=== PATIENT | female | born 1970 | race Caucasian/White ===

== ENCOUNTER 2022-08-29 14:08 | Outpatient (CLI) | payer BC | END 2022-08-29 14:09 | disposition short-term general hospital (02) | LOC: EMS 14:08 | DX: S61.512A Laceration without foreign body of left wrist, initial encounter (principal); S61.511A Laceration without foreign body of right wrist, initial encounter; S51.012A Laceration without foreign body of left elbow, initial encounter; S51.011A Laceration without foreign body of right elbow, initial encounter; X78.9XXA Intentional self-harm by unspecified sharp object, initial encounter; Y92.59 Other trade areas as the place of occurrence of the external cause | CPT/HCPCS: A0425; A0429 ==

== ENCOUNTER 2022-09-04 15:09 | Emergency (ER) | payer BC ==
[2022-09-04] MEDS ORDERED: LACTULOSE 10 GM /15 ML UDC PO STA (15:22)
[2022-09-04] MEDS ORDERED: PEG 3350/NA SULF,BICARB,CL/KCL 4,000 ML BOTTLE PO ONE (15:22)
[2022-09-04 15:58] LABS: BASOPHILS % (AUTO) 0.3 %; EOSINOPHILS # (AUTO) 0.2 10^3/uL (0.0-0.7); EOSINOPHILS % (AUTO) 3.2 %; HCT - HEMATOCRIT 37.8 % (37.0-47.0); HGB - HEMOGLOBIN 12.1 g/dL (12.0-16.0); LYMPHOCYTES # (AUTO) 1.2 10^3/uL (1.5-3.5); LYMPHOCYTES % (AUTO) 19.3 %; MEAN CORPUSCULAR VOLUME 93.8 fL (81.0-99.0); MEAN PLATELET VOLUME 9.1 fL (7.9-10.8); MONOCYTES # (AUTO) 0.5 10^3/uL (0.0-1.0); MONOCYTES % (AUTO) 8.1 %; NEUTROPHILS # (AUTO) 4.3 10^3/uL (1.5-6.6); NEUTROPHILS % (AUTO) 68.6 %; PLT - PLATELET COUNT 285 10^3/uL (130-450); RED BLOOD COUNT 4.03 10^6/uL (4.20-5.40); RED CELL DISTRIBUTION WIDTH 13.9 % (12.0-15.0); WHITE BLOOD COUNT 6.3 x10^3/uL (4.8-10.8)
[2022-09-04] MEDS ORDERED: iohexoL-300 100 ML VIAL ONE (16:21)
[2022-09-04 16:48] LABS: ALBUMIN 4.7 g/dL (3.2-5.5); ALBUMIN/GLOBULIN RATIO 1.6 (1.0-2.2); BILIRUBIN,TOTAL 0.4 mg/dL (0.2-1.0); CALCIUM 9.4 mg/dL (8.5-10.3); CREATININE 0.8 mg/dL (0.6-1.3); POTASSIUM 3.5 mmol/L (3.5-4.5); TOTAL PROTEIN 7.7 g/dL (6.4-8.9)
[2022-09-04] MEDS ORDERED: iohexoL-300 100 ML VIAL IVP ONE (17:30)
[2022-09-04] MEDS ORDERED: DIATRIZOATE MEGLU/DIATRIZO SOD 30 ML BOTTLE PO ONE (17:31)
--- NOTE | 2022-09-04 17:32 | ED Physician Documentation ---
PD HPI ABD PAIN - Stated complaint Stated Complaint: GI - Chief complaint Chief Complaint: Abd Pain - History obtained from History obtained from: Patient - Additional information Additional information: 52-year-old female with no reported past medical history presents with 5 days of constipation. Has tried MiraLAX and magnesium citrate at home without relief. Concerned there may be a blockage and presented for evaluation. She states that she normally has a "very regular" bowel regimen and this is very unusual for her. Endorsed nausea yesterday, no nausea or vomiting today. Denies hx of abdom inal surgeries. States last colonoscopy was 2 years ago and she states she was told it was "completely normal". Review of Systems Constitutional: denies: Fever, Chills GI: reports: Abdominal Pain, Constipation. denies: Nausea, Vomiting, Diarrhea Neurologic: denies: Generalized weakness, Focal weakness, Numbness PD PAST MEDICAL HISTORY - Past Medical History Past Medical History: Yes Cardiovascular: None Respiratory: None Neuro: None Endocrine/Autoimmune: HyPOthyroidism GI: None POCKET CUTTER: None : None HEENT: None Psych: None Musculoskeletal: None Derm: None - Past Surgical History Past Surgical History: Yes /POCKET CUTTER: Hysterectomy HEENT: Tonsil/Adenoidectomy - Present Medications Home Medications: Ambulatory Orders Medication Instructions Recorded Confirmed Levothyroxine Sodium [Synthroid] 88 mcg PO DAILY 09/04/22 09/04/22 - Allergies Allergies/Adverse Reactions: Allergies Allergy/AdvReac Type Severity Reaction Status Date / Time No Known Drug Allergies Allergy Verified 09/04/22 15:19 - Social History Does the pt smoke?: No Smoking Status: Never smoker Does the pt drink ETOH?: No Does the pt have substance abuse?: No - Immunizations Immunizations are current?: Yes - POLST Patient has POLST: No PD ED PE NORMAL - Vitals Vital signs reviewed: Yes - General General: Alert and oriented X 3, No acute distress, Well developed/nourished - Neck Neck: Supple, no meningeal sign - Cardiac Cardiac: RRR, Strong equal pulses - Abdomen Abdomen: Soft, Non tender, Non distended, No organomegaly - Derm Derm: Normal color, Warm and dry, No rash - Extremities Extremities: No deformity, No tenderness to palpate, Normal ROM s pain - Neuro Neuro: Alert and oriented X 3, entry level 2-12 intact, No motor deficit, Normal speech - Psych Psych: Normal mood, Normal affect Results - Vitals Vitals: Oxygen O2 Source Room air - Labs Labs: Laboratory Tests 09/04/22 09/04/22 15:50 15:50 WBC 6.3 RBC 4.03 L Hgb 12.1 Hct 37.8 MCV 93.8 MCH 30.0 MCHC 32.0 RDW 13.9 Plt Count 285 MPV 9.1 Neut # (Auto) 4.3 Lymph # (Auto) 1.2 L [place] # (Auto) 0.5 Eos # (Auto) 0.2 Baso # (Auto) 0.0 Absolute Nucleated RBC 0.00 Nucleated RBC % 0.0 Sodium 138 Potassium 3.5 Chloride 101 Carbon Dioxide 30 Anion Gap 7.0 BUN 7 Creatinine 0.8 Estimated GFR (MDRD) 76 L Glucose 93 Calcium 9.4 Total Bilirubin 0.4 AST 21 ALT 20 Alkaline Phosphatase 29 L Total Protein 7.7 Albumin 4.7 Globulin 3.0 Albumin/Globulin Ratio 1.6 Lipase 23 PD Medical Decision Making - ED course Complexity details: reviewed results, re-evaluated patient, considered differential, d/w patient, d/w family ED course: 5 days of constipation and otherwise healthy patient. Due to age and abrupt change in bowel habits will obtain CT scan. Patient did tell me that she had a "completely normal" colonoscopy 2 years ago. Laboratory work is reviewed, unremarkable.CT scan shows fluid-filled loops of colon. This is noted that could be in diarrheal illness versus ileus versus developing obstruction. Given the patient's benign abdominal exam, absence of nausea or vomiting, no history of abdominal surgeries, and reported negative colonoscopy 2 years ago this is thought to be significantly less likely to be ileus or obstruction. Patient received numerous laxatives while in the emergency department including oral contrast. She was given GoLytely to take home. She and her mother were informed of all lab and imaging results and they were counseled on the importance of mild to moderate exercise such as walking to encourage bowel movements. Patient counseled that she should return if she does not have a bowel movement in 48 hours for repeat evaluation. Departure - Departure Disposition: 01 Home, Self Care Clinical Impression: Constipation Condition: Stable Instructions: ED Constipation Comments: Please return in 48 hours if you do not have a bowel movement or if you suddenly develop abdominal pain with nausea and or vomiting. Forms: PCP List Discharge Date/Time: 09/04/22 18:30
--- NOTE | 2022-09-04 17:57 | CT Report ---
PROCEDURE: ABDOMEN/PELVIS W INDICATIONS: ABD PAIN, SEVERE CONSTIPATION CONTRAST: 100mL Omni 300 TECHNIQUE: After the administration of IV and oral contrast, 5 mm thick sections acquired from the diaphragms to the symphysis. 5 mm thick coronal and sagittal reformats were acquired. For radiation dose reducti on, the following was used: automated exposure control, adjustment of mA and/or kV according to christian ent size. COMPARISON: None FINDINGS: Image quality: Excellent. Lung bases and heart: Unremarkable. Liver: No solid mass. Gallbladder and biliary tree: Unremarkable. Spleen: No splenomegaly. Pancreas: No pancreatic ductal dilation. Adrenals: No adrenal nodule. Kidneys and ureters: No hydronephrosis. No renal cystic lesion which requires follow up. No solid mas s. Bowel and peritoneum: Bowel pattern is overall nonspecific. Colon is distended with fluid. Lymph nodes: No central or retroperitoneal adenopathy. Vessels: No infrarenal aortic aneurysm. PELVIS Reproductive organs: Unremarkable. Bladder: No abnormal wall thickening, accounting for underdistension. Pelvic lymph nodes: No pelvic adenopathy by size criteria. Bones: No aggressive osseous abnormality. Other: No significant ventral or inguinal hernia. IMPRESSION: Fluid-filled distended loops of colon as above. This can be seen with diarrhea or ileus/developing ob struction. No evidence of constipation. Reviewed by: Ana Luisa Houston MD on 09/04/2022 5:56 PM PDT Approved by: Ana Luisa Houston MD on 09/04/2022 5:56 PM PDT Station ID: [id number]
[2022-09-04 18:31] VITALS: BP 129/85
== END 2022-09-04 18:30 | disposition home or self-care (01) ==
LOC: ED 15:09
DX: K59.00 Constipation, unspecified (principal); E03.9 Hypothyroidism, unspecified; Z79.899 Other long term (current) drug therapy
CPT/HCPCS: 36415; 74177; 80053; 83690; 85025; 99283; 99284; A9270; Q9967

== ENCOUNTER 2023-09-09 07:30 | Outpatient (CLI) | payer MEDICAID ==
[2023-09-09 07:43] LABS: BASOPHILS % (AUTO) 0.6 %; EOSINOPHILS # (AUTO) 0.3 10^3/uL (0.0-0.7); EOSINOPHILS % (AUTO) 9.7 %; HCT - HEMATOCRIT 40.2 % (37.0-47.0); HGB - HEMOGLOBIN 12.6 g/dL (12.0-16.0); LYMPHOCYTES # (AUTO) 0.9 10^3/uL (1.5-3.5); LYMPHOCYTES % (AUTO) 28.1 %; MEAN CORPUSCULAR HEMOGLOBIN 28.3 pg (27.0-31.0); MEAN CORPUSCULAR HGB CONC 31.3 g/dL (32.0-36.0); MEAN CORPUSCULAR VOLUME 90.3 fL (81.0-99.0); MEAN PLATELET VOLUME 10.5 fL (7.9-10.8); MONOCYTES # (AUTO) 0.2 10^3/uL (0.0-1.0); MONOCYTES % (AUTO) 6.3 %; NEUTROPHILS # (AUTO) 1.8 10^3/uL (1.5-6.6); PLT - PLATELET COUNT 178 10^3/uL (130-450); RED BLOOD COUNT 4.45 10^6/uL (4.20-5.40); RED CELL DISTRIBUTION WIDTH 13.6 % (12.0-15.0); WHITE BLOOD COUNT 3.2 x10^3/uL (4.8-10.8)
[2023-09-09 08:13] LABS: ALBUMIN 4.3 g/dL (3.2-5.5); ALBUMIN/GLOBULIN RATIO 1.6 (1.0-2.2); ALKALINE PHOSPHATASE 32 IU/L (42-121); ALT ALANINE AMINOTRANSFERASE 14 IU/L (10-60); AST ASPARTATE AMINOTRANSFERASE 17 IU/L (10-42); BILIRUBIN,TOTAL 0.4 mg/dL (0.2-1.0); BUN - BLOOD UREA NITROGEN 10 mg/dL (6-20); CALCIUM 9.1 mg/dL (8.5-10.3); CARBON DIOXIDE - CO2 28 mmol/L (21-32); CHLORIDE 106 mmol/L (101-111); CHOL/HDL RATIO 2.5 (<4.4); CHOLESTEROL 175 mg/dL; CREATININE 0.7 mg/dL (0.6-1.3); GFR - MDRD 88 (>89); GLUCOSE 84 mg/dL (74-104); HDL CHOLESTEROL 70 mg/dL; POTASSIUM 4.4 mmol/L (3.5-4.5); SODIUM 137 mmol/L (135-145); THYROID STIMULATING HORMONE 0.36 uIU/mL (0.34-5.60); TRIGLYCERIDES 33 mg/dL
== END 2023-09-09 07:31 | disposition home or self-care (01) ==
LOC: LAB 07:30
PROVIDERS: ATTEND Nurse Practitioner Family
DX: D64.9 Anemia, unspecified (principal); R63.0 Anorexia; E03.9 Hypothyroidism, unspecified
CPT/HCPCS: 36415; 80053; 80061; 83721; 84443; 85025

== ENCOUNTER 2023-09-15 09:16 | Outpatient (CLI) | payer MEDICAID ==
[2023-09-15 09:28] LABS: BASOPHILS % (AUTO) 0.2 %; EOSINOPHILS # (AUTO) 0.3 10^3/uL (0.0-0.7); EOSINOPHILS % (AUTO) 6.4 %; HCT - HEMATOCRIT 40.2 % (37.0-47.0); HGB - HEMOGLOBIN 12.6 g/dL (12.0-16.0); LYMPHOCYTES # (AUTO) 1.2 10^3/uL (1.5-3.5); LYMPHOCYTES % (AUTO) 24.5 %; MEAN CORPUSCULAR HEMOGLOBIN 28.4 pg (27.0-31.0); MEAN CORPUSCULAR HGB CONC 31.3 g/dL (32.0-36.0); MEAN CORPUSCULAR VOLUME 90.7 fL (81.0-99.0); MEAN PLATELET VOLUME 10.3 fL (7.9-10.8); MONOCYTES # (AUTO) 0.3 10^3/uL (0.0-1.0); MONOCYTES % (AUTO) 5.4 %; NEUTROPHILS # (AUTO) 3.2 10^3/uL (1.5-6.6); NEUTROPHILS % (AUTO) 63.3 %; PLT - PLATELET COUNT 186 10^3/uL (130-450); RED BLOOD COUNT 4.43 10^6/uL (4.20-5.40); RED CELL DISTRIBUTION WIDTH 13.5 % (12.0-15.0)
== END 2023-09-15 09:17 | disposition home or self-care (01) ==
LOC: LAB 09:16
PROVIDERS: ATTEND Nurse Practitioner Family
DX: R79.89 Other specified abnormal findings of blood chemistry (principal)
CPT/HCPCS: 36415; 85025